=== PATIENT | female | born 1940 | race Two or more races ===

== ENCOUNTER 2025-01-11 12:11 | Emergency (ER) | payer MEDICARE, MEDICAID ==
[~2025-01-11] VITALS: Ht 162.6 cm; Wt 82.0 kg
[~2025-01-11 12:11] MED LIST: LATA2.5D7 OP; LEVOTHYROXINE PO; LOSARTAN PO; METFORMIN PO; POTASSIUM; SIMV-46 PO; TIMO5DRO27 OP
[2025-01-11 12:18] VITALS: O2SAT 94
[2025-01-11 15:39] LABS: BASOPHILS % 0.3 % (0.0-2.0); EOSINOPHILS % 0.7 % (0.0-5.0); HEMATOCRIT. 40.5 % (36.0-48.0); HEMOGLOBIN. 12.7 g/dL (12.0-16.0); LYMPHOCYTES % 12.4 % (20.0-50.0); MEAN PLATELET VOLUME 8.6 fl (7.4-10.4); MONOCYTES % 10.5 % (2.0-8.0); NEUTROPHILS % 76.1 % (40.0-76.0); PLATELET 276 x1000/uL (130-400); RED BLOOD CELL COUNT 4.66 mill/uL (4.2-5.4); RED CELL DISTRIBUTION WIDTH 14.0 % (11.6-14.6)
[2025-01-11 15:54] LABS: CREATININE 0.6 mg/dL (0.6-1.0); TROPONIN I HIGH SENSITIVITY < 4 ng/L (3.0-34); UREA NITROGEN BLOOD 12 mg/dL (9-23)
[2025-01-11 15:56] LABS: ASPARTATE AMINOTRANSFERASE 18 IU/L (<34); BILIRUBIN DIRECT 0.2 mg/dL (<=3.0); BILIRUBIN TOTAL 0.6 mg/dL (0.1-1.0); PROTEIN TOTAL 6.7 g/dL (6.0-8.3)
[2025-01-11] MEDS: KETOROLAC 15MG/ML VIAL IV ONE (16:49)
[2025-01-11 20:33] VITALS: BP 147/54; PULSE 60; RESP 18; TEMP 36.9; O2SAT 97
[2025-01-11] MEDS: HYDRALAZINE 20MG/ML VIAL IV ONE (20:33)
[2025-01-11 20:52] LABS: TROPONIN I HIGH SENSITIVITY < 4 ng/L (3.0-34)
== END 2025-01-11 21:12 | disposition short-term general hospital (02) ==
LOC: ER 12:11 → CANBEDREQ 18:48 → ER 21:12
DX: R53.1 Weakness (principal); E78.00 Pure hypercholesterolemia, unspecified; E11.9 Type 2 diabetes mellitus without complications; I10 Essential (primary) hypertension; Z79.899 Other long term (current) drug therapy; W19.XXXA Unspecified fall, initial encounter; Y93.89 Activity, other specified; Y92.89 Other specified places as the place of occurrence of the external cause; Y99.8 Other external cause status
CPT/HCPCS: 99285; 70450; 96374; 71045; 96375; 80076; 80048; 82962; 83880; 83735; 85025; 84484; 36415; 73502; 73030; 73060; 73070; 73090; 73100; 73120; 72125; 93005; J1885; J0360